=== PATIENT | female | born 1950 | race Caucasian/White ===

== ENCOUNTER → 2020-12-13 11:05 | Outpatient (BNVA) | payer MEDICARE, SELFPAY | PROVIDERS: Visit Provider Nurse Practitioner Family | DX: Z20.822 Contact with and (suspected) exposure to COVID-19 (principal) | CPT/HCPCS: 87635 ==

== ENCOUNTER → 2021-03-13 14:05 | Outpatient (BNVA) | payer MEDICARE, SELFPAY | PROVIDERS: PCP Family Medicine Adult Medicine; Visit Provider Family Medicine Adult Medicine | DX: E03.9 Hypothyroidism, unspecified (principal); I10 Essential (primary) hypertension | CPT/HCPCS: 80053; 80061; 84443; 85025 ==

== ENCOUNTER 2021-10-24 11:31 | Outpatient (CLI) | payer MEDICARE, SELFPAY ==
--- NOTE | 2021-10-24 11:41 | MM_ITS ---
WS: [id number] Bilateral screening 3D tomosynthesis digital mammogram, 11/03/2021 Clinical Data: SCREENING Comparison: 05/27/2020, 05/18/2020, 04/22/2019, 04/09/2019, 03/06/2018. Findings: The breast parenchymal pattern shows heterogeneous density. No spiculated masses or clustered calcif ications are seen. There are no secondary signs of carcinoma. There are calcifications in the upper o uter quadrant of the right breast but these have not changed significantly from the prior mammograms. There are mole markers on both breasts. MM/[place] [id number] Impression: 1. Negative bilateral mammogram unchanged. 2. Recommend annual screening mammograms. BIRADS: 2-Benign FOLLOW UP: 1 Year Follow-up The CAD stock checkerer was used.
== END 2021-10-24 11:32 | disposition home or self-care (01) ==
PROVIDERS: PCP Family Medicine; Visit Provider Family Medicine
DX: Z12.31 Encounter for screening mammogram for malignant neoplasm of breast (principal)
CPT/HCPCS: 77063; 77067

== ENCOUNTER 2021-11-17 15:07 | Outpatient (CLI) | payer MEDICARE, SELFPAY ==
--- NOTE | 2021-11-17 15:12 | XR_ITS ---
WS: [id number] DEXA (DUAL ENERGY X-RAY ABSORPTIOMETRY) Bone mineral density was performed using a Ernie's machine. HISTORY: OSTEOPOROSIS SCREENING COMPARISON: None available. Lumbar spine BMD (L1-L4): 1.064 g/cm2 T score: -1.0 Z score: 0.2 Left forearm BMD: 0.834 g/cm2. T score: -0.5 Z score: 1.3 XR/XR DEXA axial skeleton* [id number] IMPRESSION: NORMAL BONE MINERAL DENSITY based upon the WHO classification for females.
== END 2021-11-17 15:08 | disposition home or self-care (01) ==
PROVIDERS: PCP Family Medicine; Visit Provider Family Medicine
DX: Z13.820 Encounter for screening for osteoporosis (principal)
CPT/HCPCS: 77080

== ENCOUNTER → 2022-03-07 14:11 | Outpatient (BNVA) | payer MEDICARE, SELFPAY | PROVIDERS: PCP Family Medicine; Visit Provider Orthopaedic Surgery | DX: S43.401A Unspecified sprain of right shoulder joint, initial encounter (principal); M19.011 Primary osteoarthritis, right shoulder; X50.9XXA Other and unspecified overexertion or strenuous movements or postures, initial encounter | CPT/HCPCS: 20610; 73030; 99204; J0702; J3490 ==

== ENCOUNTER 2022-03-21 10:32 | Outpatient (RCR) | payer MEDICARE, SELFPAY | END 2022-04-17 23:59 | disposition home or self-care (01) | LOC: SPT 10:32 | PROVIDERS: PCP Family Medicine; Visit Provider Orthopaedic Surgery | DX: M25.511 Pain in right shoulder (principal) | CPT/HCPCS: 97110; 97161 ==

== ENCOUNTER → 2022-04-10 09:06 | Outpatient (BNVA) | payer MEDICARE, SELFPAY | PROVIDERS: PCP Family Medicine; Visit Provider Orthopaedic Surgery | DX: S43.401A Unspecified sprain of right shoulder joint, initial encounter (principal); M19.011 Primary osteoarthritis, right shoulder; X58.XXXA Exposure to other specified factors, initial encounter | CPT/HCPCS: 99213 ==

== ENCOUNTER → 2022-05-17 11:34 | Outpatient (BNVA) | payer MEDICARE, SELFPAY | PROVIDERS: PCP Family Medicine; Visit Provider Family Medicine | DX: Z00.00 Encounter for general adult medical examination without abnormal findings (principal); E03.9 Hypothyroidism, unspecified; I10 Essential (primary) hypertension | CPT/HCPCS: 80053; 80061; 84443; 85025 ==

== ENCOUNTER 2022-05-25 08:40 | Outpatient (CLI) | payer MEDICARE, SELFPAY ==
--- NOTE | 2022-05-25 08:50 | MR_ITS ---
WS: [id number] EXAMINATION: MR shoulder RT wo con* [id number] ORDER DATE: 05/25/2022 8:51 AM COMPARISON: None. HISTORY: pain CONTRAST: None. TECHNIQUE: Axial T2 STAR, coronal proton density fat sat, sagittal T2 fat sat, sagittal proton densit y fat sat, axial proton density fat sat, coronal T2 fat sat, and coronal T1 performed. After contrast , axial T1 fat sat, coronal T1 fat sat, and sagittal T1 fat sat were performed. FINDINGS: Advanced degenerative arthritis AC joint with edema and synovial thickening. Subacromial spurring wit h mild impingement on the distal supraspinatus. Tendinopathy distal supraspinatus. Normal infraspinat us. Normal teres minor. Distal subscapularis appears intact. Biceps tendon intact within the bicipital groove. Advanced degenerative narrowing glenohumeral articu lation. Small subcoracoid effusion. Tendinopathy intra-articular biceps tendon. Biceps labral anchor appears in tact. MR/MR shoulder RT wo con* [id number] IMPRESSION: 1. Advanced degenerative arthritis AC joint with mild fluid and edema. 2. Slight impingement on the distal supraspinatus with tendinopathy. Chronic t hinning distal supraspinatus. 3. Rotator cuff is otherwise normal in appearance. 4. Normal biceps tendon in the bicipital groove. 5. Tendinopathy intra-articular biceps tendon which appears intact. 6. Advanced degenerative narrowing at the glenohumeral articulation with mild hypertrophic spurring.
== END 2022-05-25 08:41 | disposition home or self-care (01) ==
PROVIDERS: PCP Family Medicine; Visit Provider Orthopaedic Surgery
DX: M19.011 Primary osteoarthritis, right shoulder (principal); R60.0 Localized edema
CPT/HCPCS: 73221

== ENCOUNTER → 2022-05-30 08:26 | Outpatient (BNVA) | payer MEDICARE, SELFPAY | PROVIDERS: PCP Family Medicine; Visit Provider Orthopaedic Surgery | DX: M19.011 Primary osteoarthritis, right shoulder (principal) | CPT/HCPCS: 99213 ==

== ENCOUNTER 2022-06-06 07:26 | Outpatient (CLI) | payer MEDICARE, SELFPAY ==
--- NOTE | 2022-06-06 07:30 | CT_ITS ---
WS: [id number] CT RIGHT SHOULDER, NONCONTRAST. HISTORY: pre op planning Technique: All CT scans at [facility] use at least one of these dose optimization techniques: automated exposure control; mA and/or kV adjustment per patient size (includes targeted exams where dose is matched to clinical indication); or iterative reconstruction. DLP: 219.65 mGy.cm COMPARISON: Radiographs 03/07/2022 Mild narrowing of the AC joint. There are a few small osseous density in the AC joint space. No fract ures. Normal position of the humeral head with respect to the glenoid. No fracture. Very minimal oste ophytic ridging. No significant muscle atrophy identified. No significant joint effusion. Visualized RIGHT lung is clear. No rib or chest wall abnormality. CT/CT shoulder RT wo con* [id number] IMPRESSION: 1. Mild AC joint arthritis. No fracture. 2. Mild narrowing of the glenohumeral joint with mild osteophytic ridging arou nd the humeral head.
== END 2022-06-06 07:27 | disposition home or self-care (01) ==
LOC: RAD 07:28
PROVIDERS: PCP Family Medicine; Visit Provider Orthopaedic Surgery
DX: M19.011 Primary osteoarthritis, right shoulder (principal); Z01.818 Encounter for other preprocedural examination
CPT/HCPCS: 73200

== ENCOUNTER 2022-06-25 13:28 | Outpatient (CLI) | payer MEDICARE, SELFPAY | END 2022-06-25 13:29 | disposition home or self-care (01) | LOC: RT 06-27 13:31 | PROVIDERS: PCP Family Medicine; Visit Provider Orthopaedic Surgery | DX: Z01.818 Encounter for other preprocedural examination (principal) | CPT/HCPCS: 93005 ==

== ENCOUNTER 2022-07-02 11:07 | Observation (INO) | payer MEDICARE, SELFPAY ==
[2022-06-25 09:00] VITALS: BMI 30.6
--- NOTE | 2022-06-25 09:20 | ECG_ITS ---
[facility] Test Date: 2022-06-25 Pat Name: Lynette Grewal Department: Room: Gender: Female Principal Ios Developer: : 1950 Requested By: Carlo Koo Order Number: [id number] Nimo MD: Kd Walls M.D. Measurements Intervals Josephine Rate: 65 P: 24 IA: 168 QRS: -26 QRSD: 100 T: 75 QT: 403 QTc: 421 Interpretive Statements SINUS RHYTHM LOW QRS VOLTAGE IN PRECORDIAL LEADS [QRS DEFLECTION < 1.0 mV IN CHEST LEADS] INCOMPLETE RIGHT BUNDLE BRANCH BLOCK [90+ ms QRS DURATION, TERMINAL R IN V1/V2, 40+ ms S IN I/aVL/V4/V5/V6] POSSIBLE ANTERIOR MYOCARDIAL INFARCTION , OF INDETERMINATE AGE [30 ms Q WAVE IN V3/V4, OR R < 0.2 mV IN V4] No previous ECG available for comparison Electronically Signed On 06-25-2022 17:12:28 CDT by Kd Walls M.D. [email or web address]
--- NOTE | 2022-06-25 16:09 | P.ANESASSM_ITS ---
Pre-Anesthetic Assessment Height/Weight: Height 1.55 m Weight 73.482 kg Operation Date: 07/02/22 07:00 Proposed Procedures p right total shoulder arthroplasty/38867,M19.011(Right) - Carlo Koo MD Familial anesthetic complications: none Was Beta Aretha taken within 24 hours: N/A Was Clonidine taken within 24 hours: N/A Social No alcohol and No tobacco (h/o smoking) Exam alert, oriented x 3, clear to auscultation bilaterally and regular rate & rhythm Airway Submandibular: within normal limits Cervical ROM: within normal limits Mallampati: Class II Dentition: full Pulmonary Chronic Obstructive Pulmonary Disease CV/HEM Hypertension GI Gastroesophageal Reflux Disease Metabolic Diabetes Mellitus and Thyroid Disease Musc/skel Osteoarthritis/DJD Neuropsych Anxiety and Depression Anesthetic Plan ASA status: 3 Anesthesia: General and Regional (specify below) (Interscalene nerve blk) Medications/Allergies Home Medications Medication Instructions Recorded Confirmed Last Taken Type cetirizine 10 mg tablet (All Day 10 mg PO DAILY PRN Allergy Symptoms 12/05/20 06/25/22 06/25/22 History Allergy (cetirizine)) aspirin 81 mg tablet,delayed 81 mg PO DAILY circulation #90 tabs 12/06/20 06/25/22 06/25/22 Rx release (Adult Aspirin Regimen) lisinopril 10 1 tab PO DAILY blood pressure #90 12/06/20 06/25/22 06/25/22 Rx mg-hydrochlorothiazide 12.5 mg tabs tablet polyethylene glycol 3350 17 17 g PO DAILY Bowel health #850 12/06/20 06/25/22 06/25/22 Rx gram/dose oral powder (Miralax) grams venlafaxine 75 mg capsule,extended 75 mg PO DAILY 90 days #90 caps 12/06/20 06/25/22 06/25/22 Rx release 24 hr rabeprazole 20 mg tablet,delayed 20 mg PO BID 90 days #180 tabs 06/01/21 06/25/22 06/25/22 Rx release naproxen 500 mg tablet 500 mg PO BID shoulder pain 30 03/07/22 06/25/22 Unknown Rx days #60 tabs tramadol 50 mg tablet 50 mg PO BID PRN pain #60 tabs 06/01/22 06/25/22 06/24/22 Rx levothyroxine 75 mcg tablet 75 mcg PO DAILY 06/25/22 06/25/22 06/25/22 History Allergies Allergy/AdvReac Type Severity Reaction Status Date / Time No Known Allergies Allergy Verified 05/30/22 08:45 [facility] Anesthesia Medical History Allergic rhinitis due to allergen Anxiety and depression Chronic headaches Diverticulosis 8 in resection due to abscess Former smoker, stopped smoking many years ago Quit in 1991 after 28 years of 1 ppd Gastroparesis Heart palpitations Hiatal hernia HTN (hypertension) Hypothyroid Melanocytic nevi of face Obesity (BMI 30.0-34.9) Osteoarthritis involving multiple joints on both sides of body Sweating increase Upper respiratory tract infection Wellness examination Mammogram 02/2020 Surgical History History of bladder suspension procedure History of colon resection History of total left hip replacement Hx of section Hx of hysterectomy Status post bilateral knee replacements Family History Father CAD (coronary artery disease) Hypertension Lung disease COPD Stroke Mother Dementia Denies family history of Diabetes Clotting disorder Hyperlipidemia Chronic kidney disease (CKD) Anesthesia complication Bleeding disorder Cancer Social History Smoking and tobacco status: never smoked Alcohol intake: never Substance/Drug Use: never Caregiver/support person: No Lives independently: Yes Household members: spouse Marital status: Highest education level completed: High School Graduate Current occupational status: retired Do you think of yourself as: Straight/Heterosexual Current gender identity: Female Karoline/Buddhist: Scientologist Data Anesthesia Cardiac Studies: No Data to Display
[2022-07-02] VITALS (19 sets, daily range): BP systolic 99–147; BP diastolic 48–73; PULSE 57–91; RESP 10–18; TEMP 36.3–36.6; O2SAT 94–100; BMI 30.6
[2022-07-02] MEDS: sodium chloride 0.9% 1,000 ML 30 ML IV (06:03)
[2022-07-02] MEDS: CELEcoxib 200 mg Capsule 400 MG PO (06:08)
[2022-07-02] MEDS: oxyCODONE 20 mg ER (12 HR) Tablet PO (06:08)
[2022-07-02] MEDS: gabapentin 300 mg Capsule PO (06:08)
[2022-07-02] MEDS: acetaminophen 500 mg Tablet 1000 MG PO ×3 (06:09→21:36)
[2022-07-02 06:28] LABS: Anion Gap 14.1 (5-19); Blood Urea Nitrogen 11 mg/dL (8-23); Calcium 9.4 mg/dL (8.5-10.5); Carbon Dioxide 26 mmol/L (22-29); Chloride 94 mmol/L (98-107); Glomerular Filtration Rate 82.7 mL/min (90-130); Glucose 102 mg/dL (65-115); Osmolality Calculated 270 mOsm/kg (285-295); Potassium 4.1 mmol/L (3.5-5.1); Sodium 130 mmol/L (136-145)
--- NOTE | 2022-07-02 06:49 | P.ANESUD_ITS ---
Pre-Anesthetic Update Pre-Anesthetic Assessment: Date of Surgery/Procedure: 07/02/22 Preop Melissa gnosis: Osteoarthritis right shoulder Proposed Procedure: Operation Date: 07/02/22 07:00 Proposed Procedures p right total shoulder arthroplasty/17372,M19.011(Right) - Carlo Koo MD Any changes to Pre-Anesthetic Assessment?: No Last Intake: Intake Last Liquid Date 07/01/22 Last Liquid Time 21:30 Last Solid Date 07/01/22 Last Solid Time 17:00 Labs Last 48hrs: BMP 07/02/22 05:57 Sodium 130 L Potassium 4.1 Chloride 94 L Carbon Dioxide 26 BUN 11 Creatinine 0.7 Glucose 102 Calcium 9.4 Vitals: Temperature 97.8 F 07/02/22 05:43 Temperature Source Temporal Artery S can 07/02/22 05:43 Pulse Rate 82 07/02/22 05:43 Respiratory Rate 16 07/02/22 06:08 Respiratory Effort Spontaneous 07/02/22 06:08 Respiratory Depth Normal 07/02/22 06:08 Respiratory Patter n Normal 07/02/22 06:08 Blood Pressure 147/73 07/02/22 05:43 Blood Pressure Sonam n 97 07/02/22 05:43 Pulse Oximetry 97 07/02/22 06:08 Oxygen Delivery Me thod Room Air 07/02/22 05:43 Exam: Pre-Anes Outpt Exam: alert, oriented x 3, clear to auscultation bilaterally and regular rate & rhythm Cardiac Studies: No Data to Display
--- NOTE | 2022-07-02 06:49 | ANES.PROC ---
Anesthesia Procedures Procedure/Date: 07/02/22 Nerve Block ^: Nerve Block 1: Main Anesthesia: general anesthesia Time Out Performed: Yes Consent: requested by attending/covering physician, from patient, from other, risks and benefits reviewed and patient agrees to proceed Nerve block location: interscalene (R) Anesthesia monitors applied: pulse oximetry, EKG, BP cuff and oxygen Nerve block position: semi sitting Anesthetic Used: ropivicaine 0.5% (20 ml) and with decadron (4 mg) Ultrasound used to: recognize landmarks, visualize and ID brachial plexus, in supraclavicular region and visualize and ID interscalene groove Nerve Stimulator Used?: No Interscalene/Femoral BLK: 2 stimuplex 22 g needle used for position and inplane approach, visualize local anesthetic spread and no vascular puncture identified Injection: neg aspiration of heme Patient Tolerated Procedure: well and no complications Complications: none
--- NOTE | 2022-07-02 07:01 | P.HP_ITS ---
Same Day Surgery H&P Indication for Procedure/HPI DATE OF PROCEDURE: July 02, 2022 CHIEF COMPLAINT/INDICATIONFOR SURGICAL PROCEDURE: Osteoarthritis right shoulder PREOP DIAGNOSIS: Osteoarthritis right shoulder PLANNED PROCEDURE: Operation Date: 07/02/22 07:00 Proposed Procedures p right total shoulder arthroplasty/87880,M19.011(Right) - Carlo Koo MD 71-year-old female with right shoulder pain unresponsive to anti-inflammatories injection and therapy. Lift arm above shoulder height sleeping at night. MRI has revealed severe degenerative changes. Here for right total shoulder arthroplasty Medications/Allergies* Home Medications Medication Instructions Recorded Confirmed Type cetirizine 10 mg tablet (All Day 10 mg PO DAILY PRN Allergy Symptoms 12/05/20 07/02/22 History Allergy (cetirizine)) levothyroxine 75 mcg tablet 75 mcg PO DAILY 06/25/22 07/02/22 History Allergies/Adverse Reactions Allergy/AdvReac Type Severity Reaction Status Date / Time No Known Allergies Allergy Verified 07/02/22 05:40 Current Medications: Generic Name Dose Route Start Last Admin Trade Name Freq PRN Reason Stop Dose Admin Sodium Chloride 1,000 mls @ 30 mls/hr 07/02/22 05:30 07/02/22 06:03 Sodium Chloride 0.9% IV 07/03/22 05:29 30 mls/hr .Q24H KEEGAN Administration Pertinent History/Comorbid Conditions* Medical History (Updated 05/17/22 @ 10:47 by Garo Chou MD) Allergic rhinitis due to allergen Anxiety and depression Chronic headaches Diverticulosis 8 in resection due to abscess Former smoker, stopped smoking many years ago Quit in 1991 after 28 years of 1 ppd Gastroparesis Heart palpitations Hiatal hernia HTN (hypertension) Hypothyroid Melanocytic nevi of face Obesity (BMI 30.0-34.9) Osteoarthritis involving multiple joints on both sides of body Sweating increase Upper respiratory tract infection Wellness examination Mammogram 02/2020 Surgical History (Updated 12/06/20 @ 16:33 by Harshil Chirinos MD) History of bladder suspension procedure History of colon resection History of total left hip replacement Hx of section Hx of hysterectomy Status post bilateral knee replacements Family History (Updated 10/06/21 @ 13:01 by Sosa Weathers LPN) CAD (coronary artery disease) Father Dementia Mother Lung disease Father COPD Hypertension Father Stroke Father Denies family history of Diabetes Clotting disorder Hyperlipidemia Chronic kidney disease (CKD) Anesthesia complication Bleeding disorder Cancer Social History Smoking and tobacco status: never smoked Alcohol intake: never Substance/Drug Use: never Caregiver/support person: No Lives independently: Yes Household members: spouse Marital status: Highest education level completed: High School Graduate Current occupational status: retired Do you think of yourself as: Straight/Heterosexual Current gender identity: Female Karoline/Mormonism: Jehovah'S Witness Pertinent Exam Findings alert, oriented x 3, clear to auscultation bilaterally, regular rate & rhythm a nd operative site marked Tenderness over anterior and posterior glenohumeral joint. I can flex her to 100 degrees and externally rotate her 45 degrees. He has pain with extremes of motion. MOTOR:? Strong and symetrical biceps, triceps, wrist extension, transformer builder and interossei strength. SENSATION: Intact to light touch Recommendations Surgery/Procedure today Coding Level of Care Code Acute Code for Chg Fwd Diagnoses
[2022-07-02] MEDS: ceFAZolin 2,000 MG in sodium chloride 0.9% (plus) 50 ML 100 MG IV ×3 (07:08→22:56)
[2022-07-02] MEDS: tranexamic acid 1,000 mg/10mL SDV 1000 MG IV (07:45)
[2022-07-02] MEDS: EPINEPHrine 1 mg/mL INJ XX (08:37)
--- NOTE | 2022-07-02 09:30 | XRR_ITS ---
PROCEDURE INFORMATION: Exam: XR Right Shoulder Exam date and time: 07/02/2022 8:54 AM Age: 71 years old Clinical indication: Device placement; Joint replacement hardware; Prior surgery; Surgery date: Post-operative (0-2 days); Surgery type: Right total shoulder; Additional info: Right total shoulder, ap with 30 degrees humeral external rotation TECHNIQUE: Imaging protocol: Radiologic exam of the right shoulder. Views: 2 or more views. COMPARISON: CT shoulder RT wo con* [id number] 06/06/2022 7:54 AM FINDINGS: Bones/joints: Right shoulder arthroplasty without periprosthetic fracture or osteolysis. Moderate acromioclavicular joint degenerative changes. Osteopenia. Soft tissues: Expected subcutaneous emphysema about the shoulder. XR/XR shoulder RT min 2V* [id number] IMPRESSION: Right shoulder arthroplasty without periprosthetic fracture or osteolysis.
--- NOTE | 2022-07-02 09:30 | P.OP_ITS ---
Operative Report Date of procedure: July 02, 2022 Pre-op diagnosis: Preop Diagnosis Osteoarthritis right shoulder Post-op diagnosis: same Procedure done: [] total shoulder arthroplasty Implants: Tornier total shoulder 1) Simpliciti size 3B stem 2) Simpliciti STB low offset humeral Head 42 mm, thickness 18 mm 3) Aequalis PerFORM cortiolc pegged glenoid all 30 mm Pathology: none sent Surgeon: Carlo Koo Anesthesia: General and Nerve Block (Interscalene) Estimated blood loss (mL): 100 Complications: None Findings: Had eburnated bone over the femoral head and peripheral osteophytes Condition: stable Disposition: PACU Brief History: 71-year-old female with progressive right shoulder pain unresponsive to medications injections and therapy. MRI revealed advanced degenerative change. Procedure: Patient was given a interscalene block in holding. The patient was taken to the operating room and was given 2 g of Ancef. He is prepped and draped in the beachchair position with his arm supported on a Mayberry stand. A timeout was performed. A 10cm incision was made just lateral to the coracoid extending distally in line with the medial deltoid border. Dissection was carried out identifying the cephalic vein in the deltopectoral interval. Dissection was accomplished manually through the interval and subacromial and lateral deltoid adhesions released by hand. A Yayo soft tissue protector was placed. The biceps tendon was identified distally and traced proximally through the bicipital groove. The subscapularis and underlying capsule were then peeled off of the lesser tuberosity. The free tendon was fixed with braided sutures in a locking fashion and the free ends secured with a hemostat. The rotator interval was then split. The shoulder then could be dislocated out of the wound. In accordance with our preoperative plan a femoral head cut was made at the level of the capsular insertions with retractors to protect the rotator cuff. The canal was broached to the size 3B stem and the proximal calcar reamed smooth. A humeral protector was placed. Retractors were then placed around the glenoid with the humeral head being retracted posteriorly and inferiorly. Release of the capsule was accomplished beginning anteriorly and working posteriorly around the humeral head. In acc ordance with the plan the central guidepin was placed. The glenoid was planed down to subchondral bone removing. The central peg hole and peripheral holes were then placed. The glenoid was irrigated removing cartilaginous remnants. Peripheral peg holes were dried with a Ray-Mayelin and prepared with an epinephrine solution. Simplex P antibiotic cement was packed in each pedicle and the final glenoid component placed. Trial reduction was accomplished before settling on the desired humeral head and the final head was placed and the shoulder reduced. 4 drill holes were then made beginning in the bicipital groove posteriorly into the greater tuberosity. Sutures from the subscapularis were passed through these holes and the sutures were secured over a 4-hole mini plate over the greater tuberosity with excellent purchase. The rotator interval was closed laterally with a braided nylon suture. The shoulder was irrigated with saline. The deltopectoral interval was closed with interrupted 0 Vicryl suture. Subcutaneous tissues were closed with running 2-0 Stratafix. Skin edges closed with a running 4-0 Stratafix. The skin was covered with a Prineo skin glue and covered with OpSite. The patient was placed in a shoulder immobilizer, extubated, and taken recovery room in stable condition.
--- NOTE | 2022-07-02 09:37 | PC.NURSE ---
Pt arrived to PACU, dressing to right shoulder C/D/I, immobilizer in place. Right hand p/w/d, cap refill <3 seconds, good right radial pulse noted, able to wiggle fingers. Ice pack applied.
--- NOTE | 2022-07-02 09:55 | PC.NURSE ---
Right shoulder Xrays obtained.
--- NOTE | 2022-07-02 11:19 | SUR.EXTENDED ---
patient taken to room 271 in floor bed, awake and alert, first ice to right shoulder. right arm in immobilizer. dressing to right shoulder dry and intact. pt had scd on bilaterally. states no pain. belongings taken to room 271 with her. no family present on transfer. report was given to sherry KELLEY
[2022-07-02] MEDS: sodium chloride 0.9% 1,000 ML 80 ML IV ×2 (14:42→21:37)
--- NOTE | 2022-07-02 15:26 | ANE.PACU2 ---
Inpatient post-anesthesia follow up: Airway intact: Yes Vital signs: Temperature 97.5 F Pulse Rate 62 Respiratory Rate 16 Blood Pressure 119/58 Pulse Oximetry 96 Oxygen Delivery Me thod Room Air Oxygen Flow Rate 6 Fraction of Inspir ed Oxygen Hydration adequate: Yes Nausea and vomiting: No Pain level: 1 Mental status: Baseline
[2022-07-02] MEDS: CELEcoxib 200 mg Capsule PO (17:10)
[2022-07-02] MEDS: pantoprazole DR 40 mg Tablet PO (17:11)
[2022-07-03] VITALS: BP 126/69; PULSE 78; RESP 17; TEMP 36.3; O2SAT 97
[2022-07-03 04:00] VITALS: BP 117/76; PULSE 78; RESP 18; TEMP 36.6; O2SAT 95
[2022-07-03 05:21] VITALS: RESP 18
[2022-07-03] MEDS: acetaminophen 500 mg Tablet 1000 MG PO (05:21)
[2022-07-03] MEDS: oxyCODONE 5 mg IR Tab/Cap PO (05:21)
[2022-07-03] MEDS: ceFAZolin 2,000 MG in sodium chloride 0.9% (plus) 50 ML 100 MG IV (06:03)
[2022-07-03 08:00] VITALS: BP 135/69; PULSE 71; RESP 18; TEMP 36.7; O2SAT 95
[2022-07-03] MEDS: levothyroxine 75 mcg Tablet PO (08:56)
[2022-07-03] MEDS: lisinopril 10 mg Tablet PO (08:56)
[2022-07-03] MEDS: aspirin 81 mg EC Tablet PO (08:56)
[2022-07-03] MEDS: venlafaxine ER (24HR) 75 mg Capsule PO (08:56)
[2022-07-03] MEDS: hydroCHLOROthiazide 25 mg Tablet 12.5 MG PO (08:56)
[2022-07-03] MEDS: pantoprazole DR 40 mg Tablet PO (08:57)
[2022-07-03] MEDS: CELEcoxib 200 mg Capsule PO (08:57)
--- NOTE | 2022-07-03 09:08 | PM.DCS ---
Discharge Providers Date of Admission: 07/02/22 11:07 Date of Discharge: July 03, 2022 Attending Provider at Admission: Carlo Koo MD Attending Provider at Discharge: Carlo Koo MD Primary Care Provider: Garo Chou MD Reason for Visit Reason for Visit: M19.011, 88101 Brief History: 71-year-old female with right shoulder pain attributable to osteoarthritis per MRI. Has failed reasonable conservative measures including medications injections and therapy. Hospital Course Hospital Course The patient tolerated surgery well. They remained hemodynamically stable. They was begun on aspirin and sequential compression dressings for DVT prophylaxis. The patient was mobilized with therapy beginning the day of surgery. As the pain was adequately controlled and they were fully mobile they were discharged home. Physical Exam Narrative: On the day of discharge the patient's dressing was clean and dry. The patient's would fire his deltoid and their biceps. No distal neurovascular deficits were noted. Discharge Data Studies Completed and Pending Completed Studies During Hospitalization Category Date Time Status XR shoulder RT min 2V* [id number] Routine Exams 07/02/22 09:30 Completed Radiology Impressions Shoulder X-Ray 07/02/22 09:30 IMPRESSION: Right shoulder arthroplasty without periprosthetic fracture or osteolysis. Laboratory Results Sodium 130 mmol/L (136-145) L 07/02/22 05:57 Potassium 4.1 mmol/L (3.5-5.1) 07/02/22 05:57 Chloride 94 mmol/L (98-107) L 07/02/22 05:57 Carbon Dioxide 26 mmol/L (22-29) 07/02/22 05:57 Anion Gap 14.1 (5-19) 07/02/22 05:57 BUN 11 mg/dL (8-23) 07/02/22 05:57 Creatinine 0.7 mg/dL (0.5-0.9) 07/02/22 05:57 GFR Calculation 82.7 mL/min (90-130) L 07/02/22 05:57 Glucose 102 mg/dL (65-115) 07/02/22 05:57 Calculated Osmolality 270 mOsm/kg (285-295) L 07/02/22 05:57 Calcium 9.4 mg/dL (8.5-10.5) 07/02/22 05:57 Vitals Last Vital Signs Temp 98.1 F 07/03/22 08:00 Pulse 71 07/03/22 08:00 Resp 18 07/03/22 08:00 BP 135/69 07/03/22 08:00 Pulse Ox 95 07/03/22 08:00 O2 Del Method Room Air 07/03/22 08:00 O2 Flow Rate 6 07/02/22 09:42 Discharge Plan Discharge Patient Disposition: Home Condition: Stable Prescriptions: New oxycodone 5 mg Tablet 5 mg PO Q4H PRN (Reason: Moderate Pain) 7 Days Qty: 40 0RF acetaminophen 500 mg Tablet 1,000 mg PO Q8H 14 Days Qty: 84 0RF celecoxib 200 mg Capsule 200 mg PO BID 14 Days Qty: 28 0RF Continued cetirizine [All Day Allergy (cetirizine)] 10 mg tablet 10 mg PO DAILY PRN (Reason: Allergy Symptoms) aspirin [Adult Aspirin Regimen] 81 mg tablet,delayed release (DR/EC) 81 mg PO DAILY Qty: 90 3RF lisinopril-hydrochlorothiazide 10-12.5 mg tablet 1 tab PO DAILY Qty: 90 3RF polyethylene glycol 3350 [Miralax] 17 gram/dose powder 17 g PO DAILY Qty: 850 5RF venlafaxine 75 mg capsule,extended release 24hr 75 mg PO DAILY 90 Days Qty: 90 3RF rabeprazole 20 mg tablet,delayed release (DR/EC) 20 mg PO BID 90 Days Qty: 180 0RF tramadol 50 mg tablet 50 mg PO BID PRN (Reason: pain) Qty: 60 5RF levothyroxine 75 mcg tablet 75 mcg PO DAILY Rx Instructions: TAKE 1 TABLET BY MOUTH ONCE DAILY FOR THYROID Held naproxen 500 mg tablet 500 mg PO BID 30 Days Qty: 60 0RF Hold Instructions: Resume on 07/17/22. Discharge Orders: Discharge Order (Routine); Ordered 07/03/22 Ordered By: Carlo Koo Other Ambulatory Orders: Occupational Therapy Eval and Treat Outpatient (Order) Timeframe: 2 Days Facility: [facility] - Location: Occupational Therapy [place] Ordered By: Carlo Koo Referrals: Carlo Koo MD [Physician] - 07/17/22 8:45 am Discharge Diet: Advance as tolerated Discharge Activity: Limit activity as instructed Patient Instructions: Opioid Safety Activity Restrictions/Additional Instructions: Okay to shower. No soaking incision in tub Apply FirstIce up to 20 min/hr for pain and swelling Take Tylenol 500mg (up to 2 tabs) 3 times a day for mild pain take oxycodone for breakthrough pain. Exercises per Occupational Therapy IF HAVE ANY PROBLEMS OR QUESTIONS CALL [facility]PER[facility] AT AND ASK TO HAVE DR. BERHANE ABDUL. Plan of Treatment: Outpatient Occupational Therapy will be arranged through [facility] therapy Discharge Attestations Time Spent in Discharge Care*: other Quality Metrics Clinical Quality Measures [ No reported AMI, CVA or VTE this stay] Coding Level of Care Code Acute Code for Chg Fwd Diagnoses
--- NOTE | 2022-07-03 09:50 | PC.CHAP ---
Pastoral Care Encounter/Spiritual Assessment Type of Contact [] Declined pad assembler visit [] Patient/Family/Request visit [] Outpatient visit [] Follow-up visit [] Physician referral [] Code/Alert [x] Routine visit [] Staff referral [] Actively dying [] Patient sleeping [] Family support [] [] Out of room [] Palliative care [] [] Receiving care in room [] Pre-surgical visit [] Trauma [] Long length of stay [] ICU visit [] Other: Relational/Emotional Strength [x] Patient feels connected with others/family/visitors/staff [] Distress [] Loneliness/isolation [] Abandonment Spirituality of Patient [x] Person of Karoline [] Attends Sabianism of their Karoline [x] Believes in Prayer [] Reads Bible or Worship materials [] There are Spiritual issues to be addressed Halftone Operator Interventions [x] Prayer [x] Active listening [] Non-anxious presence [x] Spiritual/emotional support [] Crisis/trauma care [] Spiritual counseling [] Bereavement support [] Provided bereavement packet [] Provided Bible/devotional materials [] Provided toy/stuffed animal, coloring book to patient or family member [] Provided Communion [] Anointing/Reading [] Salvation [x] Completed spiritual assessment [] Other: Impact on Illness or Injury [] Angry [] Fearful [] Anxious [] Often cries [] Exhaustion [] Unable to work [] Unable to attend amish [] Unable to walk/stand [] Unable to read [] Unable to drive [] Unable to eat/drink [] Unable to sleep [] Unable to be with family [] Patient intubated [] Other: Summary Time spent with patient 5 min
[2022-07-03 11:13] VITALS: BP 113/52; PULSE 66; RESP 18; TEMP 36.6; O2SAT 97
--- NOTE | 2022-07-03 11:55 | PC.NURSE ---
PATIENT VERBALIZED UNDERSTANDING OF DISCHARGE INSTRUCTIONS, HOME MEDICATIONS AND FOLLOW UP APPOINTMENTS.
[2022-07-03 12:14] VITALS: BP 113/52; PULSE 66; RESP 18; TEMP 36.6; O2SAT 97
== END 2022-07-03 12:15 | disposition home or self-care (01) ==
LOC: MEDSURG 11:07
PROVIDERS: Anesthesiology; Admitting Provider Orthopaedic Surgery; PCP Family Medicine; Visit Provider Orthopaedic Surgery
PROC: (CPT 23472; principal; 2022-07-02 07:00)
DX: M19.011 Primary osteoarthritis, right shoulder (principal); Z79.82 Long term (current) use of aspirin; J44.9 Chronic obstructive pulmonary disease, unspecified; I10 Essential (primary) hypertension; K21.9 Gastro-esophageal reflux disease without esophagitis; E11.9 Type 2 diabetes mellitus without complications; E03.9 Hypothyroidism, unspecified; F41.9 Anxiety disorder, unspecified; F32.A Depression, unspecified; Z87.891 Personal history of nicotine dependence; I45.10 Unspecified right bundle-branch block
CPT/HCPCS: 23472; 36415; 73030; 80048; 97165; C1713; C1776; G0378; J0171; J0461; J0690; J1100; J1580; J2370; J2405; J2704; J2710; J2795; J3010; J3490; J7030

== ENCOUNTER 2022-07-10 13:06 | Outpatient (RCR) | payer MEDICARE, SELFPAY | END 2022-07-18 23:59 | disposition home or self-care (01) | LOC: SPT 13:06 | PROVIDERS: PCP Family Medicine; Visit Provider Orthopaedic Surgery | DX: Z47.89 Encounter for other orthopedic aftercare (principal) | CPT/HCPCS: 97110; 97161 ==

== ENCOUNTER → 2022-07-17 08:45 | Outpatient (BNVA) | payer MEDICARE, SELFPAY | PROVIDERS: PCP Family Medicine; Visit Provider Orthopaedic Surgery | DX: Z96.611 Presence of right artificial shoulder joint (principal) | CPT/HCPCS: 99024 ==

== ENCOUNTER 2022-07-19 06:00 | Outpatient (RCR) | payer MEDICARE, SELFPAY | END 2022-08-17 23:59 | disposition home or self-care (01) | LOC: SPT 06:00 | PROVIDERS: PCP Family Medicine; Visit Provider Orthopaedic Surgery | DX: Z47.1 Aftercare following joint replacement surgery (principal); Z96.611 Presence of right artificial shoulder joint | CPT/HCPCS: 97110 ==

== ENCOUNTER → 2022-08-14 14:52 | Outpatient (BNVA) | payer MEDICARE, SELFPAY | PROVIDERS: PCP Family Medicine; Visit Provider Nurse Practitioner Family | DX: Z96.611 Presence of right artificial shoulder joint (principal) | CPT/HCPCS: 73030; 99024 ==

== ENCOUNTER 2022-08-18 06:00 | Outpatient (RCR) | payer MEDICARE, SELFPAY | END 2022-09-17 23:59 | disposition home or self-care (01) | LOC: SPT 06:00 | PROVIDERS: PCP Family Medicine; Visit Provider Orthopaedic Surgery | DX: Z47.89 Encounter for other orthopedic aftercare (principal) | CPT/HCPCS: 97110 ==

== ENCOUNTER 2022-09-18 06:00 | Outpatient (RCR) | payer MEDICARE, SELFPAY | END 2022-10-18 23:59 | disposition home or self-care (01) | LOC: SPT 06:00 | PROVIDERS: PCP Family Medicine; Visit Provider Orthopaedic Surgery | DX: Z47.1 Aftercare following joint replacement surgery (principal); Z96.611 Presence of right artificial shoulder joint | CPT/HCPCS: 97110 ==

== ENCOUNTER → 2022-09-24 08:22 | Outpatient (BNVA) | payer MEDICARE, SELFPAY | PROVIDERS: PCP Family Medicine; Visit Provider Nurse Practitioner Family | DX: Z96.611 Presence of right artificial shoulder joint (principal); S43.401A Unspecified sprain of right shoulder joint, initial encounter; X58.XXXA Exposure to other specified factors, initial encounter | CPT/HCPCS: 73030; 99213 ==

== ENCOUNTER → 2022-09-25 14:59 | Outpatient (BNVA) | payer MEDICARE, SELFPAY | PROVIDERS: PCP Family Medicine; Visit Provider Family Medicine | DX: E87.1 Hypo-osmolality and hyponatremia (principal); R55 Syncope and collapse; F41.9 Anxiety disorder, unspecified; F32.A Depression, unspecified; E03.9 Hypothyroidism, unspecified | CPT/HCPCS: 80048 ==

== ENCOUNTER 2022-10-31 14:49 | Outpatient (CLI) | payer MEDICARE, SELFPAY ==
--- NOTE | 2022-10-31 14:56 | MM_ITS ---
WS: [id number] VIEWS: MLO and CC views both breasts. 3D digital tomosynthesis is also included in this exam. Comparison made with prior exam of 03/06/2018, 04/09/2019, 04/22/2019, 05/18/2020. 10/24/2021.. Findings: There was no sign of mass, architectural distortion or suspicious calcification in either breast. The breasts are heterogeneously dense which may obscure small masses. Impression: MM/[place] [id number] BI-RADS: 2-Benign finding. FOLLOW-UP: 1 Year Follow-up This mammogram was also analyzed by the Computer Aided Detection System [employer] Helper.
== END 2022-10-31 14:50 | disposition home or self-care (01) ==
PROVIDERS: PCP Family Medicine; Visit Provider Family Medicine
DX: Z12.31 Encounter for screening mammogram for malignant neoplasm of breast (principal)
CPT/HCPCS: 77063; 77067

== ENCOUNTER → 2022-11-13 15:42 | Outpatient (BNVA) | payer MEDICARE, SELFPAY | PROVIDERS: PCP Family Medicine; Visit Provider Physician Assistant | DX: M25.511 Pain in right shoulder (principal); Z96.611 Presence of right artificial shoulder joint | CPT/HCPCS: 73030; 99213 ==

== ENCOUNTER → 2022-11-19 08:25 | Outpatient (BNVA) | payer MEDICARE, SELFPAY | PROVIDERS: PCP Family Medicine; Visit Provider Surgery | DX: Z12.11 Encounter for screening for malignant neoplasm of colon (principal) | CPT/HCPCS: 99024; 99203 ==

== ENCOUNTER → 2022-12-13 13:17 | Outpatient (BNVA) | payer MEDICARE, SELFPAY | PROVIDERS: PCP Family Medicine; Visit Provider Dermatology | DX: L82.1 Other seborrheic keratosis (principal); L82.0 Inflamed seborrheic keratosis; L81.4 Other melanin hyperpigmentation; L57.0 Actinic keratosis; D18.01 Hemangioma of skin and subcutaneous tissue | CPT/HCPCS: 17000; 17110; 99203 ==

== ENCOUNTER 2023-02-05 09:03 | Outpatient (CLI) | payer MEDICARE, SELFPAY ==
--- NOTE | 2023-02-05 09:06 | XR_ITS ---
WS: [id number] Left wrist, 2 views, 02/05/2023 Clinical Data: left wrist pain Comparison: None. Findings: No definite fracture line is seen. There is an irregular line across the waist of the scaphoid which is unlikely to be a fracture, however a scaphoid view could be helpful. The distal left radius and ulna are unremarkable. Impression: Recommend scaphoid view of the left wrist.
== END 2023-02-05 09:04 | disposition home or self-care (01) ==
LOC: RAD 09:04
PROVIDERS: PCP Family Medicine; Visit Provider Family Medicine
DX: M25.532 Pain in left wrist (principal)
CPT/HCPCS: 73100

== ENCOUNTER 2023-02-06 10:15 | Outpatient (CLI) | payer MEDICARE, SELFPAY ==
--- NOTE | 2023-02-06 10:27 | XRR_ITS ---
PROCEDURE INFORMATION: Exam: XR Left Wrist Exam date and time: 02/06/2023 10:43 AM Age: 72 years old Clinical indication: Injury or trauma and abnormal findings; Fall; Abnormal imaging study of the limbs; Wrist; Blunt trauma (contusions or hematomas); Left; Injury date: 6 weeks ago; Additional info: Abnormal x-ray TECHNIQUE: Imaging protocol: Radiologic exam of the left wrist. Views: 3 or more views. COMPARISON: CR XR wrist LT 2V [id number] 02/05/2023 9:18 AM FINDINGS: Bones/joints: No fracture or dislocation. No acute osseous, joint, or soft tissue abnormality. No erosive arthritis. Soft tissues: Normal. XR/XR wrist LT w scaphoid [id number] IMPRESSION: No significant abnormality.
== END 2023-02-06 10:16 | disposition home or self-care (01) ==
LOC: RAD 10:18
PROVIDERS: PCP Family Medicine; Visit Provider Family Medicine
DX: M25.532 Pain in left wrist (principal)
CPT/HCPCS: 73110

== ENCOUNTER → 2023-03-15 11:25 | Outpatient (BNVA) | payer MEDICARE, SELFPAY | PROVIDERS: PCP Family Medicine; Visit Provider Physician Assistant | DX: M25.532 Pain in left wrist (principal); M65.4 Radial styloid tenosynovitis [de Quervain] | CPT/HCPCS: 20600; 73110; 99203; J1040; J3490 ==

== ENCOUNTER → 2023-04-10 08:37 | Outpatient (BNVA) | payer MEDICARE, SELFPAY | PROVIDERS: PCP Family Medicine; Visit Provider Family Medicine | DX: F41.9 Anxiety disorder, unspecified (principal); F32.A Depression, unspecified; I10 Essential (primary) hypertension; E03.9 Hypothyroidism, unspecified | CPT/HCPCS: 80053; 80061; 84443; 85025 ==

== ENCOUNTER 2023-04-18 06:32 | Day surgery (SDC) | payer MEDICARE, SELFPAY ==
--- NOTE | 2023-04-18 06:41 | W.PM.OPSFHP ---
Same Day Surgery H&P Indication for Procedure/HPI DATE OF PROCEDURE: April 18, 2023 CHIEF COMPLAINT/INDICATIONFOR SURGICAL PROCEDURE: need for screening colonoscopy PREOP DIAGNOSIS: need for screening colonoscopy PLANNED PROCEDURE: Operation Date: 04/18/23 07:40 [place] [address] colon G0121 screen colon A risk Z12.11(Not Applicable) - George Sagastume MD Medications/Allergies* Home Medications Medication Instructions Recorded Confirmed Type cetirizine 10 mg tablet (All Day 10 mg PO DAILY PRN Allergy Symptoms 12/05/20 04/16/23 History Allergy (cetirizine)) levothyroxine 75 mcg tablet 75 mcg PO DAILY 06/25/22 04/16/23 History biotin 1 tab PO DAILY 04/16/23 04/16/23 History escitalopram oxalate 10 mg tablet 10 mg PO DAILY 04/16/23 04/16/23 History (Lexapro) naproxen 500 mg tablet,delayed 500 mg PO Q12H PRN Pain 04/16/23 04/16/23 History release (EC-Naprosyn) rabeprazole 20 mg tablet,delayed 20 mg PO BID 04/16/23 04/16/23 History release (AcipHex) Allergies/Adverse Reactions Allergy/AdvReac Type Severity Reaction Status Date / Time No Known Allergies Allergy Verified 04/16/23 08:21 Pertinent History/Comorbid Conditions* Medical History (Updated 03/15/23 @ 12:18 by VALENTÍN Cuadra) Heart palpitations Chronic headaches Melanocytic nevi of face Obesity (BMI 30.0-34.9) Hiatal hernia Upper respiratory tract infection Allergic rhinitis due to allergen Osteoarthritis involving multiple joints on both sides of body Sweating increase Diverticulosis 8 in resection due to abscess Former smoker, stopped smoking many years ago Quit in 1991 after 28 years of 1 ppd Anxiety and depression Hypothyroid HTN (hypertension) Gastroparesis Wellness examination Mammogram 02/2020 Surgical History (Updated 07/03/22 @ 09:06 by Carlo Koo MD) History of total left hip replacement History of bladder suspension procedure Status post bilateral knee replacements History of colon resection Hx of hysterectomy Hx of section Family History (Updated 10/06/21 @ 13:01 by Sosa Weathers LPN) CAD (coronary artery disease) Father Dementia Mother Lung disease Father COPD Hypertension Father Stroke Father Denies family history of Diabetes Clotting disorder Hyperlipidemia Chronic kidney disease (CKD) Anesthesia complication Bleeding disorder Cancer Social History Smoking and tobacco/nicotine status: never used tobacco/nicotine Alcohol intake: never Substance/Drug Use: never Caregiver/support person: No Lives independently: Yes Household members: spouse Marital status: Highest education level completed: High School Graduate Current occupational status: retired Do you think of yourself as: Straight/Heterosexual Current gender identity: Female Karoline/Moravian: Latter-Day Pertinent Exam Findings alert, oriented x 3 and clear to auscultation bilaterally Recommendations Surgery/Procedure today Coding Level of Care Code Acute Code for Chg Fwd
[2023-04-18 06:51] VITALS: BP 150/74; PULSE 79; RESP 14; TEMP 36.2; O2SAT 98; BMI 32.7
[2023-04-18] MEDS: sodium chloride 0.9% 1,000 ML 30 ML IV (07:14)
--- NOTE | 2023-04-18 07:36 | P.ANESASSM_ITS ---
Pre-Anesthetic Assessment Height/Weight: Height 1.57 m Weight 81.193 kg Temp Pulse Resp BP Pulse Ox O2 Del Method 97.2 F L 79 14 150/74 98 Room Air 04/18/23 06:51 04/18/23 06:51 04/18/23 06:51 04/18/23 06:51 04/18/23 06:51 04/18/23 06:51 Preop Diagnosis: need for screening colonoscopy Operation Date: 04/18/23 07:40 Proposed Procedures p 05768 colon G0121 screen colon A risk Z12.11(Not Applicable) - George Sagastume MD Was Beta Aretha taken within 24 hours: N/A Was Clonidine taken within 24 hours: N/A Last intake: Intake Last Liquid Date 04/17/23 Last Liquid Time 21:30 Last Solid Date 04/16/23 Last Solid Time 17:30 Social No alcohol and No tobacco Exam alert, oriented x 3, clear to auscultation bilaterally and regular rate & rhythm Airway Submandibular: within normal limits Cervical ROM: within normal limits Mallampati: Class II Dentition: full History/ROS No significant history except as noted and No significant complaints Pulmonary None reported CV/HEM Hypertension None reported Hepatic None reported GI None reported Metabolic Thyroid Disease [facility] [place] Osteoarthritis/DJD Neuropsych Anxiety Anesthetic Plan ASA status: 2 Anesthesia: Anesthesia Evaluation and MAC Risk of > 500 ml blood loss (7ml/kg in children): No Medications/Allergies Home Medications Medication Instructions Recorded Confirmed Last Taken Type cetirizine 10 mg tablet (All Day 10 mg PO DAILY PRN Allergy Symptoms 12/05/20 04/18/23 04/17/23 History Allergy (cetirizine)) aspirin 81 mg tablet,delayed 81 mg PO DAILY circulation #90 tabs 12/06/20 04/16/23 04/14/23 Rx release (Adult Aspirin Regimen) lisinopril 10 1 tab PO DAILY blood pressure #90 12/06/20 04/18/23 04/17/23 Rx mg-hydrochlorothiazide 12.5 mg tabs tablet levothyroxine 75 mcg tablet 75 mcg PO DAILY 06/25/22 04/18/23 04/17/23 History tramadol 50 mg tablet 50 mg PO BID PRN pain #60 tabs 02/05/23 04/16/23 Unknown Rx biotin 1 tab PO DAILY 04/16/23 04/18/23 04/17/23 History escitalopram oxalate 10 mg tablet 10 mg PO DAILY 04/16/23 04/18/23 04/17/23 History (Lexapro) naproxen 500 mg tablet,delayed 500 mg PO Q12H PRN Pain 04/16/23 04/16/23 Unknown History release (EC-Naprosyn) rabeprazole 20 mg tablet,delayed 20 mg PO BID 04/16/23 04/18/23 04/17/23 History release (AcipHex) Allergies Allergy/AdvReac Type Severity Reaction Status Date / Time No Known Allergies Allergy Verified 04/16/23 08:21 Current Medications Generic Name Dose Route Start Last Admin Trade Name Freq PRN Reason Stop Dose Admin Sodium Chloride 1,000 mls @ 30 mls/hr 04/18/23 06:45 04/18/23 07:14 Sodium Chloride 0.9% IV 30 mls/hr .Q24H KEEGAN Administration PFSH Anesthesia Medical History Heart palpitations Chronic headaches Melanocytic nevi of face Obesity (BMI 30.0-34.9) Hiatal hernia Upper respiratory tract infection Allergic rhinitis due to allergen Osteoarthritis involving multiple joints on both sides of body Sweating increase Diverticulosis 8 in resection due to abscess Former smoker, stopped smoking many years ago Quit in 1991 after 28 years of 1 ppd Anxiety and depression Hypothyroid HTN (hypertension) Gastroparesis Wellness examination Mammogram 02/2020 Surgical History History of total left hip replacement History of bladder suspension procedure Status post bilateral knee replacements History of colon resection Hx of hysterectomy Hx of section Family History Father CAD (coronary artery disease) Hypertension Lung disease COPD Stroke Mother Dementia Denies family history of Diabetes Clotting disorder Hyperlipidemia Chronic kidney disease (CKD) Anesthesia complication Bleeding disorder Cancer Social History Smoking and tobacco/nicotine status: never used tobacco/nicotine Alcohol intake: never Substance/Drug Use: never Caregiver/support person: No Lives independently: Yes Household members: spouse Marital status: Highest education level completed: High School Graduate Current occupational status: retired Do you think of yourself as: Straight/Heterosexual Current gender identity: Female Karoline/Muslim: Hindu Data Anesthesia Cardiac Studies: No Data to Display
[2023-04-18 08:20] VITALS: BP 105/49; PULSE 64; RESP 20; TEMP 36.1; O2SAT 96
[2023-04-18 08:34] VITALS: BP 120/60; PULSE 59; RESP 16; O2SAT 99
--- NOTE | 2023-04-18 14:22 | ANE.PACU2 ---
Inpatient post-anesthesia follow up: Airway intact: Yes Vital signs: Temperature 97 F Pulse Rate 59 Respiratory Rate 16 Blood Pressure 120/60 Pulse Oximetry 99 Oxygen Delivery Me thod Room Air Oxygen Flow Rate Fraction of Inspir ed Oxygen Hydration adequate: Yes Nausea and vomiting: No Pain level: 2 Mental status: Baseline
== END 2023-04-18 09:00 | disposition home or self-care (01) ==
PROVIDERS: PCP Family Medicine; Visit Provider Surgery
PROC: 0DJD8ZZ Inspection of Lower Intestinal Tract, Via Natural or Artificial Opening Endoscopic (ICD-10-PCS; CPT 45378; principal; 2023-04-18 07:40)
DX: Z12.11 Encounter for screening for malignant neoplasm of colon (principal); D12.5 Benign neoplasm of sigmoid colon; D12.8 Benign neoplasm of rectum; E66.9 Obesity, unspecified; Z68.32 Body mass index [BMI] 32.0-32.9, adult; Z87.891 Personal history of nicotine dependence; E03.9 Hypothyroidism, unspecified; I10 Essential (primary) hypertension; Z90.49 Acquired absence of other specified parts of digestive tract
CPT/HCPCS: 45380; 45385; 88305; J2704; J7030

== ENCOUNTER 2023-12-17 12:48 | Outpatient (CLI) | payer MEDICARE, SELFPAY ==
--- NOTE | 2023-12-17 12:53 | MM_ITS ---
WS: [id number] BILATERAL 3D TOMOSYNTHESIS DIGITAL SCREENING MAMMOGRAPHY WITH CAD CLINICAL INFORMATION: SCREENING HISTORY: Screening mammogram. No current complaints. COMPARISON: 2022 TECHNIQUE: Bilateral CC and MLO views. FINDINGS: The breasts are composed of heterogeneous fibroglandular density tissue, which can limit the detectio n of small underlying mass lesions. No suspicious mass, asymmetry, calcifications, or architectural d istortion. No evidence of malignancy. Diffuse punctate scattered calcifications similar to previous MM/MM [facility] tomosynthesis [id number] IMPRESSION: DENSITY: The breasts are heterogeneously dense, which may obscure small masses. BI-RADS: 2 - Benign FOLLOW UP: 1 Year Follow-up Recommend return to annual screening mammography.
== END 2023-12-17 12:49 | disposition home or self-care (01) ==
LOC: RAD 12:49
PROVIDERS: PCP Family Medicine; Visit Provider Family Medicine
DX: Z12.31 Encounter for screening mammogram for malignant neoplasm of breast (principal); R92.333 Mammographic heterogeneous density, bilateral breasts; R92.1 Mammographic calcification found on diagnostic imaging of breast
CPT/HCPCS: 77063; 77067

== ENCOUNTER 2023-12-26 13:19 | Outpatient (CLI) | payer MEDICARE, SELFPAY ==
--- NOTE | 2023-12-26 13:28 | XR_ITS ---
WS: [id number] XR hip RT 2-3V wo/w pel* [id number] REASON FOR EXAM: hip pain FINDINGS: No fracture or focal bone lesion. Focal narrowing in the posterior inferior joint space associated with moderate subchondral sclerosis in the acetabulum and mild spurring of the femoral head. Minimal narrowing in the superior anterior joint space with moderate subchondral sclerosis and osteop hytosis. XR/XR hip RT 2-3V wo/w pel* [id number] IMPRESSION: Mild to moderate osteoarthritis of the hip.
--- NOTE | 2023-12-26 13:28 | XR_ITS ---
WS: [id number] XR lumbar spine 2-3V* [id number] REASON FOR EXAM: sciatica FINDINGS: Relatively normal lumbar spine curvatures. No significant vertebral body abnormality. Moderate vertebral body osteophytosis L1-L5. Mild narrowing of the L4-L5 and L5-S1 disc spaces. 3. Millimeters of anterolisthesis of L4 in relation to L3 and L5. No spondylolysis. Significant degenerative arthropathic change in the facet joints L3-S1. XR/XR lumbar spine 2-3V* [id number] IMPRESSION: Moderate degenerative spondylosis in the lumbar spine as above.
== END 2023-12-26 13:20 | disposition home or self-care (01) ==
PROVIDERS: PCP Family Medicine; Visit Provider Family Medicine
DX: M47.896 Other spondylosis, lumbar region (principal); M25.78 Osteophyte, vertebrae; M16.11 Unilateral primary osteoarthritis, right hip
CPT/HCPCS: 72100; 73502

== ENCOUNTER → 2024-03-06 09:01 | Outpatient (BNVA) | payer MEDICARE, SELFPAY | PROVIDERS: PCP Family Medicine; Visit Provider Student in an Organized Health Care Education/Training Program | DX: M16.11 Unilateral primary osteoarthritis, right hip (principal); M70.61 Trochanteric bursitis, right hip | CPT/HCPCS: 99204 ==

== ENCOUNTER → 2024-04-22 11:50 | Outpatient (BNVA) | payer MEDICARE, SELFPAY | PROVIDERS: PCP Family Medicine; Visit Provider Family Medicine | DX: E78.5 Hyperlipidemia, unspecified (principal); E03.9 Hypothyroidism, unspecified; I10 Essential (primary) hypertension | CPT/HCPCS: 80053; 80061; 84439; 84443; 85025 ==

== ENCOUNTER → 2024-06-05 10:00 | Outpatient (BNVA) | payer MEDICARE, SELFPAY | PROVIDERS: PCP Family Medicine; Visit Provider Student in an Organized Health Care Education/Training Program | DX: M16.11 Unilateral primary osteoarthritis, right hip (principal) | CPT/HCPCS: 20610; 77002; J3301; J9999 ==

== ENCOUNTER → 2024-07-27 13:23 | Outpatient (BNVA) | payer MEDICARE, SELFPAY | PROVIDERS: PCP Family Medicine; Visit Provider Anesthesiology Pain Medicine | DX: M54.50 Low back pain, unspecified (principal); M79.604 Pain in right leg; M51.16 Intervertebral disc disorders with radiculopathy, lumbar region; M70.61 Trochanteric bursitis, right hip; Z96.611 Presence of right artificial shoulder joint; M16.11 Unilateral primary osteoarthritis, right hip | CPT/HCPCS: 99204 ==

== ENCOUNTER → 2024-09-16 10:24 | Outpatient (BNVA) | payer MEDICARE, SELFPAY | PROVIDERS: PCP Family Medicine; Visit Provider Student in an Organized Health Care Education/Training Program | DX: M16.11 Unilateral primary osteoarthritis, right hip (principal) | CPT/HCPCS: 99214 ==

== ENCOUNTER 2024-12-17 10:26 | Outpatient (CLI) | payer MEDICARE, SELFPAY ==
--- NOTE | 2024-12-17 10:30 | MM_ITS ---
WS: [id number] BILATERAL SCREENING DIGITAL TOMOSYNTHESIS MAMMOGRAM WITH CAD HISTORY: SCREENING COMPARISON: 12/17/2023, 10/31/2022, 10/24/2021 Bilateral CC and MLO views with tomosynthesis and synthetic mammography submitted. Computer aided detection analyzed. Breast composition: The breasts are heterogeneously dense, which may obscure small masses. No suspicious masses, microcalcifications or architectural distortion. Benign calcifications in each breast. Slow increase in number of the calcifications which are scattered. MM/MM scr tomosynthesis [id number] IMPRESSION: BI-RADS: 2 - Benign FOLLOW UP: 1 Year Follow-up
== END 2024-12-17 10:27 | disposition home or self-care (01) ==
LOC: RAD 10:26
PROVIDERS: PCP Family Medicine; Visit Provider Family Medicine
DX: Z12.31 Encounter for screening mammogram for malignant neoplasm of breast (principal); R92.1 Mammographic calcification found on diagnostic imaging of breast
CPT/HCPCS: 77063; 77067